=== PATIENT | male | born 1940 | race Caucasian/White ===

== ENCOUNTER 2020-05-10 19:06 | Inpatient (IN) ==
[2020-05-10] MEDS ORDERED: Naloxone 0.4 MG/ML INJ IVP PRN (20:46)
[2020-05-10] MEDS ORDERED: *HR* Dextrose 50 % in Water (Vial) 50 ML VIAL IVP PRN (22:54)
[2020-05-10] MEDS ORDERED: D5% in Water 1,000 ML IVC PRN (22:54)
[2020-05-10] MEDS ORDERED: Dextrose Gel 15 GM/37.5 ML TUBE PO PRN ×2 (22:54)
[2020-05-11] MEDS: Insulin LISPRO 300 UNITS/3 ML VIAL SQ SCH ×4 (00:55→18:01)
[2020-05-11 04:52] LABS: Hematocrit 26.4 % (37.5-50.1); Hemoglobin 7.6 g/dL (12.9-16.9); Mean Corpuscular HGB Conc 28.8 g/dL (31.6-35.5); Mean Platelet Volume 11.4 fL (9.4-12.4); Platelet Count 302 K/mcL (140-400); Red Blood Count 2.81 M/mcL (4.19-5.50); Red Cell Distribution Width 16.1 % (11.5-14.5); White Blood Count 19.6 K/mcL (4.3-11.1)
[2020-05-11] MEDS: D5% in Water 1,000 ML IVC SCH ×4 (05:01→23:40)
[2020-05-11 05:16] LABS: Albumin 3.5 g/dL (3.5-5.7); Bilirubin,Total 0.7 mg/dL (0.3-1.0); Calcium 8.6 mg/dL (8.6-10.3); Globulin 3.5 g/dL (2.4-3.5); Magnesium 2.6 mg/dL (1.6-2.6); Phosphorous 3.4 mg/dL (2.7-4.5); Potassium 3.6 mEq/L (3.5-5.1)
[2020-05-11] MEDS: Piperacillin/Tazobactam 3.375 GM in 0.9 % Sodium Chloride Mini Bag 100 ML IVPB SCH ×3 (09:03→23:41)
[2020-05-11] MEDS: Ringers Solution, Lactated 1,000 ML IVC SCH ×2 (09:07→18:01)
[2020-05-11] MEDS: Milk and Molasses Enema 200 ML RC SCH ×2 (09:46→23:39)
[2020-05-11 10:17] LABS: Hematocrit 25.8 % (37.5-50.1); Hemoglobin 7.5 g/dL (12.9-16.9)
[2020-05-11 11:04] LABS: Calcium 8.9 mg/dL (8.6-10.3); Potassium 3.4 mEq/L (3.5-5.1)
[2020-05-11] MEDS: Pantoprazole 40 MG in 0.9 % Sodium Chloride Mini Bag 100 ML IVC SCH ×3 (11:29→23:39)
[2020-05-11 14:37] LABS: Calcium 8.6 mg/dL (8.6-10.3); Potassium 3.6 mEq/L (3.5-5.1)
[2020-05-11] MEDS ORDERED: Pantoprazole 40 MG VIAL IVP SCH (18:00)
[2020-05-11] MEDS ORDERED: Acetaminophen IV 1,000 MG/100 ML INFUS..BTL IVPB ONE (18:57)
[2020-05-11] MEDS ORDERED: Ringers Solution, Lactated 500 ML IVC ONE (18:57)
[2020-05-11 20:21] LABS: Calcium 8.2 mg/dL (8.6-10.3); Potassium 3.3 mEq/L (3.5-5.1)
[2020-05-11 20:21] LABS: ABG Base Excess 1 mEq/L (-2 to 3); ABG HCO3 24 mEq/L (21-27); ABG Oxygen Saturation 97 % (95-98); ABG PCO2 30 mmHg (35-45); ABG PH 7.51 pH Units (7.32-7.45); ABG PO2 80 mmHg (85-104); ABG TCO2 25 mEq/L (20-26)
[2020-05-11] MEDS: Bisacodyl 10 MG RECTAL SUPPOSITORY RC SCH (20:27)
[2020-05-11] MEDS ORDERED: Albumin 25% 25gram/100mL 25 GM/100 ML IV.SOLN IVPB ONE (20:55)
[2020-05-11] MEDS ORDERED: Potassium Chloride 20 MEQ, Lidocaine 1% 2 ML in 0.9 % Sodium Chloride 250 ML IVPB ONE (23:30)
[2020-05-11] MEDS: Calcium Gluconate 1gm/50mL 1 GM/50 ML BAG IVPB SCH (23:56)
[2020-05-12] MEDS: Insulin LISPRO 300 UNITS/3 ML VIAL SQ SCH ×4 (00:56→17:28)
[2020-05-12] MEDS: Calcium Gluconate 1gm/50mL 1 GM/50 ML BAG IVPB SCH (00:56)
[2020-05-12 01:19] LABS: Basophils % 0.1 %; Hematocrit 20.3 % (37.5-50.1); Immature Granulocytes % 0.9 % (0-4); Lymphocytes # 1.2 K/mcL (0.6-4.6); Lymphocytes % 9.1 %; Mean Corpuscular HGB Conc 29.6 g/dL (31.6-35.5); Mean Corpuscular Hemoglobin 28.2 pg (28.0-33.3); Mean Corpuscular Volume 95.3 fL (83.0-100.0); Mean Platelet Volume 11.3 fL (9.4-12.4); Monocytes # 0.5 K/mcL (0.0-1.3); Monocytes % 3.8 %; Neutrophils # 11.2 K/mcL (1.6-8.9); Nucleated Red Blood Cells 0.3 /100 WBC (0); Platelet Count 208 K/mcL (140-400); Red Blood Count 2.13 M/mcL (4.19-5.50); Red Cell Distribution Width 16.5 % (11.5-14.5); Segmented Neutrophils % 86.1 %
[2020-05-12 01:28] LABS: Magnesium 2.5 mg/dL (1.6-2.6); Phosphorous 2.6 mg/dL (2.7-4.5)
[2020-05-12 01:29] LABS: Calcium 8.5 mg/dL (8.6-10.3); Potassium 3.5 mEq/L (3.5-5.1)
[2020-05-12 01:55] LABS: Folate > 22.3 ng/mL (3.0-16.0); Vitamin B12 764 pg/mL (250-1100)
[2020-05-12] MEDS ORDERED: Acetaminophen IV 1,000 MG/100 ML INFUS..BTL IVPB ONE (02:22)
[2020-05-12] MEDS ORDERED: 0.9 % Sodium Chloride 250 ML ONE (02:59)
[2020-05-12] MEDS ORDERED: Ringers Solution, Lactated 500 ML IVC SCH (03:15)
[2020-05-12] MEDS: Pantoprazole 40 MG in 0.9 % Sodium Chloride Mini Bag 100 ML IVC SCH ×5 (03:20→21:43)
[2020-05-12] MEDS: D5% in Water 1,000 ML IVC SCH ×4 (04:05→21:33)
[2020-05-12] MEDS: Levalbuterol Neb 1.25 MG/3 ML IH SCH ×4 (05:46→21:46)
[2020-05-12] MEDS: Acetylcysteine 10% 2 ML INHSOL IH SCH ×4 (05:46→21:46)
[2020-05-12] MEDS ORDERED: D5% in Water 1,000 ML IVC SCH (09:00)
[2020-05-12] MEDS: Piperacillin/Tazobactam 3.375 GM in 0.9 % Sodium Chloride Mini Bag 100 ML IVPB SCH ×3 (09:17→23:56)
[2020-05-12] MEDS: Bisacodyl 10 MG RECTAL SUPPOSITORY RC SCH ×2 (09:18→21:33)
[2020-05-12 09:44] LABS: Hematocrit 27.9 % (37.5-50.1); Hemoglobin 8.2 g/dL (12.9-16.9)
[2020-05-12 10:10] LABS: Calcium 8.7 mg/dL (8.6-10.3); Potassium 3.7 mEq/L (3.5-5.1)
[2020-05-12] MEDS: Milk and Molasses Enema 200 ML RC SCH (10:13)
[2020-05-12] MEDS ORDERED: Metoclopramide 10 MG/2 ML VIAL IVP ONE (11:23)
[2020-05-12 15:40] LABS: Calcium 8.7 mg/dL (8.6-10.3); Potassium 3.6 mEq/L (3.5-5.1)
[2020-05-13] MEDS: Insulin LISPRO 300 UNITS/3 ML VIAL SQ SCH ×4 (00:24→20:30)
[2020-05-13] MEDS: Milk and Molasses Enema 200 ML RC SCH ×2 (01:00→12:38)
[2020-05-13 01:24] LABS: BUN/Creatinine Ratio 34 (6-26); Blood Urea Nitrogen 45 mg/dL (8-23); Calcium 7.9 mg/dL (8.6-10.3); Carbon Dioxide 20 mEq/L (23-29); Chloride 128 mEq/L (98-107); Glucose 169 mg/dL (70-105); Osmolality,Calculated 337 (280-300); Potassium 3.9 mEq/L (3.5-5.1); Sodium 156 mEq/L (136-145); eGFR For African Americans > 60 (> 60); eGFR For Non-African Americans 52 (> 60)
[2020-05-13] MEDS: Pantoprazole 40 MG in 0.9 % Sodium Chloride Mini Bag 100 ML IVC SCH ×5 (02:32→20:41)
[2020-05-13] MEDS: D5% in Water 1,000 ML IVC SCH ×6 (02:40→20:42)
[2020-05-13] MEDS: Levalbuterol Neb 1.25 MG/3 ML IH SCH ×4 (04:02→22:22)
[2020-05-13] MEDS: Acetylcysteine 10% 2 ML INHSOL IH SCH ×3 (04:02→16:02)
[2020-05-13 05:15] LABS: Basophils % 0.2 %; Eosinophils % 0.3 %; Hematocrit 26.7 % (37.5-50.1); Hemoglobin 8.2 g/dL (12.9-16.9); Immature Granulocytes % 0.8 % (0-4); Lymphocytes # 1.4 K/mcL (0.6-4.6); Lymphocytes % 9.3 %; Mean Corpuscular HGB Conc 30.7 g/dL (31.6-35.5); Mean Corpuscular Hemoglobin 28.7 pg (28.0-33.3); Mean Corpuscular Volume 93.4 fL (83.0-100.0); Mean Platelet Volume 11.6 fL (9.4-12.4); Monocytes # 0.6 K/mcL (0.0-1.3); Monocytes % 4.2 %; Neutrophils # 12.8 K/mcL (1.6-8.9); Nucleated Red Blood Cells 0.1 /100 WBC (0); Platelet Count 226 K/mcL (140-400); Red Blood Count 2.86 M/mcL (4.19-5.50); Red Cell Distribution Width 17.2 % (11.5-14.5); Segmented Neutrophils % 85.2 %
[2020-05-13 05:18] LABS: Eosinophils # 0.1 K/mcL (0.0-0.6)
[2020-05-13 05:32] LABS: BUN/Creatinine Ratio 32 (6-26); Blood Urea Nitrogen 40 mg/dL (8-23); Carbon Dioxide 20 mEq/L (23-29); Chloride 124 mEq/L (98-107); Glucose 137 mg/dL (70-105); Magnesium 2.4 mg/dL (1.6-2.6); Osmolality,Calculated 328 (280-300); Phosphorous 3.5 mg/dL (2.7-4.5); Potassium 3.7 mEq/L (3.5-5.1); Sodium 153 mEq/L (136-145); eGFR For African Americans > 60 (> 60); eGFR For Non-African Americans 56 (> 60)
[2020-05-13 06:08] LABS: Platelet Estimate Normal (Normal)
[2020-05-13] MEDS: Bisacodyl 10 MG RECTAL SUPPOSITORY RC SCH ×2 (08:11→20:41)
[2020-05-13] MEDS: Piperacillin/Tazobactam 3.375 GM in 0.9 % Sodium Chloride Mini Bag 100 ML IVPB SCH ×2 (08:11→16:52)
[2020-05-13 09:19] LABS: Hemoglobin 7.1 g/dL (12.9-16.9); Lymphocytes # 1.1 K/mcL (0.6-4.6); Mean Corpuscular HGB Conc 29.6 g/dL (31.6-35.5); Mean Corpuscular Hemoglobin 27.5 pg (28.0-33.3); Mean Platelet Volume 11.6 fL (9.4-12.4); Platelet Count 198 K/mcL (140-400); Red Blood Count 2.58 M/mcL (4.19-5.50); Red Cell Distribution Width 16.7 % (11.5-14.5); White Blood Count 13.2 K/mcL (4.3-11.1)
[2020-05-13 09:40] LABS: Monocytes # 0.5 K/mcL (0.0-1.3); Neutrophils # 11.6 K/mcL (1.6-8.9); Platelet Estimate Normal (Normal)
[2020-05-13 09:41] LABS: Anisocytosis 1+ (Not Present)
[2020-05-13] MEDS ORDERED: 0.9 % Sodium Chloride 250 ML ONE (11:27)
[2020-05-13] MEDS ORDERED: *HR* Propofol 200 MG/20 ML VIAL IVP ONE (14:29)
[2020-05-13] MEDS ORDERED: D5% in Water 500 ML IVC SCH (17:15)
[2020-05-13 18:18] LABS: Hematocrit 25.1 % (37.5-50.1); Hemoglobin 7.7 g/dL (12.9-16.9)
[2020-05-14] MEDS: Insulin LISPRO 300 UNITS/3 ML VIAL SQ SCH ×5 (00:56→20:05)
[2020-05-14] MEDS: Piperacillin/Tazobactam 3.375 GM in 0.9 % Sodium Chloride Mini Bag 100 ML IVPB SCH ×4 (00:57→23:37)
[2020-05-14] MEDS: Pantoprazole 40 MG in 0.9 % Sodium Chloride Mini Bag 100 ML IVC SCH ×2 (02:11→07:45)
[2020-05-14 02:48] LABS: Basophils % 0.1 %; Eosinophils # 0.3 K/mcL (0.0-0.6); Eosinophils % 1.7 %; Hematocrit 25.1 % (37.5-50.1); Hemoglobin 7.8 g/dL (12.9-16.9); Immature Granulocytes % 0.6 % (0-4); Lymphocytes # 1.8 K/mcL (0.6-4.6); Lymphocytes % 12.4 %; Mean Corpuscular HGB Conc 31.1 g/dL (31.6-35.5); Mean Corpuscular Hemoglobin 27.8 pg (28.0-33.3); Mean Corpuscular Volume 89.3 fL (83.0-100.0); Mean Platelet Volume 11.6 fL (9.4-12.4); Monocytes # 0.5 K/mcL (0.0-1.3); Monocytes % 3.4 %; Neutrophils # 11.9 K/mcL (1.6-8.9); Platelet Count 210 K/mcL (140-400); Red Blood Count 2.81 M/mcL (4.19-5.50); Red Cell Distribution Width 15.5 % (11.5-14.5); Segmented Neutrophils % 81.8 %; White Blood Count 14.5 K/mcL (4.3-11.1)
[2020-05-14 03:09] LABS: BUN/Creatinine Ratio 25 (6-26); Blood Urea Nitrogen 24 mg/dL (8-23); Calcium 7.4 mg/dL (8.6-10.3); Carbon Dioxide 18 mEq/L (23-29); Chloride 115 mEq/L (98-107); Glucose 112 mg/dL (70-105); Magnesium 1.9 mg/dL (1.6-2.6); Osmolality,Calculated 299 (280-300); Phosphorous 2.4 mg/dL (2.7-4.5); Potassium 3.4 mEq/L (3.5-5.1); Sodium 142 mEq/L (136-145); eGFR For African Americans > 60 (> 60); eGFR For Non-African Americans > 60 (> 60)
[2020-05-14] MEDS: Acetaminophen 650 MG RECTAL SUPP RC PRN (03:51)
[2020-05-14] MEDS: Levalbuterol Neb 1.25 MG/3 ML IH SCH ×4 (03:52→22:09)
[2020-05-14] MEDS: D5% in Water 1,000 ML IVC SCH (04:23)
[2020-05-14] MEDS: Bisacodyl 10 MG RECTAL SUPPOSITORY RC SCH ×2 (08:18→20:03)
[2020-05-14] MEDS ORDERED: Potassium Phosphate 44 MEQ in 0.9 % Sodium Chloride 250 ML IVPB ONE (08:23)
[2020-05-14] MEDS: Calcium Gluconate 1gm/50mL 1 GM/50 ML BAG IVPB SCH ×2 (09:12→10:02)
[2020-05-14] MEDS ORDERED: Furosemide 20 MG/2 ML VIAL IVP ONE (12:19)
[2020-05-14] MEDS ORDERED: Levalbuterol Neb 1.25 MG/3 ML IH PRN (22:51)
[2020-05-15 02:42] LABS: BUN/Creatinine Ratio 19 (6-26); Blood Urea Nitrogen 18 mg/dL (8-23); Calcium 7.5 mg/dL (8.6-10.3); Carbon Dioxide 17 mEq/L (23-29); Chloride 118 mEq/L (98-107); Glucose 76 mg/dL (70-105); Magnesium 1.8 mg/dL (1.6-2.6); Osmolality,Calculated 299 (280-300); Phosphorous 3.2 mg/dL (2.7-4.5); Potassium 3.5 mEq/L (3.5-5.1); Sodium 144 mEq/L (136-145); eGFR For African Americans > 60 (> 60); eGFR For Non-African Americans > 60 (> 60)
[2020-05-15] MEDS: Insulin LISPRO 300 UNITS/3 ML VIAL SQ SCH ×4 (07:54→22:19)
[2020-05-15] MEDS: Piperacillin/Tazobactam 3.375 GM in 0.9 % Sodium Chloride Mini Bag 100 ML IVPB SCH ×2 (09:15→16:13)
[2020-05-15] MEDS: Bisacodyl 10 MG RECTAL SUPPOSITORY RC SCH ×2 (09:16→22:19)
[2020-05-15 13:57] LABS: Basophils % 0.3 %; Eosinophils # 0.3 K/mcL (0.0-0.6); Eosinophils % 2.8 %; Hematocrit 30.3 % (37.5-50.1); Hemoglobin 9.5 g/dL (12.9-16.9); Immature Granulocytes % 0.4 % (0-4); Lymphocytes # 0.8 K/mcL (0.6-4.6); Lymphocytes % 8.5 %; Mean Corpuscular HGB Conc 31.4 g/dL (31.6-35.5); Mean Corpuscular Hemoglobin 27.9 pg (28.0-33.3); Mean Corpuscular Volume 89.1 fL (83.0-100.0); Mean Platelet Volume 10.8 fL (9.4-12.4); Monocytes # 0.4 K/mcL (0.0-1.3); Monocytes % 3.9 %; Neutrophils # 7.7 K/mcL (1.6-8.9); Platelet Count 232 K/mcL (140-400); Red Cell Distribution Width 15.4 % (11.5-14.5); Segmented Neutrophils % 84.1 %; White Blood Count 9.2 K/mcL (4.3-11.1)
[2020-05-16] MEDS: Piperacillin/Tazobactam 3.375 GM in 0.9 % Sodium Chloride Mini Bag 100 ML IVPB SCH ×3 (00:52→16:25)
[2020-05-16 07:38] LABS: Basophils % 0.2 %; Eosinophils # 0.2 K/mcL (0.0-0.6); Eosinophils % 2.5 %; Hematocrit 29.1 % (37.5-50.1); Hemoglobin 9.1 g/dL (12.9-16.9); Immature Granulocytes % 0.9 % (0-4); Lymphocytes # 0.9 K/mcL (0.6-4.6); Lymphocytes % 10.7 %; Mean Corpuscular HGB Conc 31.3 g/dL (31.6-35.5); Mean Corpuscular Hemoglobin 27.2 pg (28.0-33.3); Mean Corpuscular Volume 86.9 fL (83.0-100.0); Mean Platelet Volume 11.3 fL (9.4-12.4); Monocytes # 0.4 K/mcL (0.0-1.3); Monocytes % 5.1 %; Neutrophils # 6.5 K/mcL (1.6-8.9); Platelet Count 267 K/mcL (140-400); Red Blood Count 3.35 M/mcL (4.19-5.50); Red Cell Distribution Width 15.1 % (11.5-14.5); Segmented Neutrophils % 80.6 %
[2020-05-16] MEDS: Insulin LISPRO 300 UNITS/3 ML VIAL SQ SCH ×4 (07:44→21:39)
[2020-05-16 08:00] LABS: BUN/Creatinine Ratio 12 (6-26); Blood Urea Nitrogen 9 mg/dL (8-23); Calcium 7.7 mg/dL (8.6-10.3); Carbon Dioxide 18 mEq/L (23-29); Chloride 112 mEq/L (98-107); Glucose 89 mg/dL (70-105); Magnesium 1.6 mg/dL (1.6-2.6); Osmolality,Calculated 290 (280-300); Potassium 3.1 mEq/L (3.5-5.1); Sodium 141 mEq/L (136-145); eGFR For African Americans > 60 (> 60); eGFR For Non-African Americans > 60 (> 60)
[2020-05-16] MEDS: Bisacodyl 10 MG RECTAL SUPPOSITORY RC SCH ×2 (10:04→21:39)
[2020-05-16] MEDS ORDERED: Potassium Phosphate 44 MEQ in 0.9 % Sodium Chloride 250 ML IVPB ONE (14:01)
[2020-05-17] MEDS: Piperacillin/Tazobactam 3.375 GM in 0.9 % Sodium Chloride Mini Bag 100 ML IVPB SCH ×3 (01:09→17:51)
[2020-05-17] MEDS ORDERED: Potassium Phosphate 44 MEQ in 0.9 % Sodium Chloride 250 ML IVPB ONE (07:20)
[2020-05-17] MEDS: Bisacodyl 10 MG RECTAL SUPPOSITORY RC SCH ×2 (07:44→22:32)
[2020-05-17] MEDS: Potassium Chloride Elixir 20 MEQ/15 ML UDC PO SCH ×2 (07:44→13:50)
[2020-05-17 08:19] LABS: Basophils % 0.3 %; Eosinophils # 0.1 K/mcL (0.0-0.6); Eosinophils % 1.2 %; Hematocrit 27.4 % (37.5-50.1); Hemoglobin 8.6 g/dL (12.9-16.9); Immature Granulocytes % 0.9 % (0-4); Lymphocytes # 0.9 K/mcL (0.6-4.6); Lymphocytes % 10.6 %; Mean Corpuscular HGB Conc 31.4 g/dL (31.6-35.5); Mean Corpuscular Hemoglobin 27.3 pg (28.0-33.3); Mean Platelet Volume 10.3 fL (9.4-12.4); Monocytes # 0.6 K/mcL (0.0-1.3); Monocytes % 6.4 %; Neutrophils # 7.1 K/mcL (1.6-8.9); Nucleated Red Blood Cells 0.2 /100 WBC (0); Platelet Count 316 K/mcL (140-400); Red Blood Count 3.15 M/mcL (4.19-5.50); Red Cell Distribution Width 15.4 % (11.5-14.5); Segmented Neutrophils % 80.6 %; White Blood Count 8.9 K/mcL (4.3-11.1)
[2020-05-17 08:34] LABS: BUN/Creatinine Ratio 13 (6-26); Blood Urea Nitrogen 9 mg/dL (8-23); Calcium 7.7 mg/dL (8.6-10.3); Carbon Dioxide 16 mEq/L (23-29); Chloride 112 mEq/L (98-107); Glucose 76 mg/dL (70-105); Magnesium 1.9 mg/dL (1.6-2.6); Osmolality,Calculated 289 (280-300); Phosphorous 2.7 mg/dL (2.7-4.5); Potassium 3.7 mEq/L (3.5-5.1); Sodium 141 mEq/L (136-145); eGFR For African Americans > 60 (> 60); eGFR For Non-African Americans > 60 (> 60)
[2020-05-17] MEDS: Insulin LISPRO 300 UNITS/3 ML VIAL SQ SCH ×4 (08:39→22:33)
[2020-05-17] MEDS: Acetaminophen 650 MG RECTAL SUPP RC PRN (12:05)
[2020-05-17] MEDS: Baclofen 10 MG TABLET PO SCH ×2 (13:50→22:32)
[2020-05-17] MEDS: Magnesium Oxide 400 MG TABLET PO SCH (13:53)
[2020-05-17] MEDS: Haloperidol Lactate 5 MG/ML VIAL IVP PRN ×2 (14:13→22:33)
[2020-05-17] MEDS ORDERED: Isovue-370 500 ML BOTTLE IVP ONE (14:57)
[2020-05-17] MEDS ORDERED: Mirtazapine 15 MG TABLET PO SCH (21:00)
[2020-05-18] MEDS: Piperacillin/Tazobactam 3.375 GM in 0.9 % Sodium Chloride Mini Bag 100 ML IVPB SCH ×2 (00:16→09:14)
[2020-05-18 05:39] LABS: Basophils % 0.2 %; Eosinophils # 0.2 K/mcL (0.0-0.6); Eosinophils % 1.8 %; Hematocrit 27.4 % (37.5-50.1); Hemoglobin 8.5 g/dL (12.9-16.9); Lymphocytes # 1.1 K/mcL (0.6-4.6); Lymphocytes % 12.5 %; Mean Corpuscular Hemoglobin 28.1 pg (28.0-33.3); Mean Corpuscular Volume 90.4 fL (83.0-100.0); Mean Platelet Volume 10.6 fL (9.4-12.4); Monocytes # 0.7 K/mcL (0.0-1.3); Monocytes % 7.8 %; Neutrophils # 6.8 K/mcL (1.6-8.9); Platelet Count 355 K/mcL (140-400); Red Blood Count 3.03 M/mcL (4.19-5.50); Red Cell Distribution Width 15.9 % (11.5-14.5); Segmented Neutrophils % 76.7 %; White Blood Count 8.8 K/mcL (4.3-11.1)
[2020-05-18 06:00] LABS: BUN/Creatinine Ratio 13 (6-26); Blood Urea Nitrogen 9 mg/dL (8-23); Calcium 7.9 mg/dL (8.6-10.3); Carbon Dioxide 14 mEq/L (23-29); Chloride 108 mEq/L (98-107); Glucose 62 mg/dL (70-105); Magnesium 1.8 mg/dL (1.6-2.6); Osmolality,Calculated 281 (280-300); Phosphorous 2.6 mg/dL (2.7-4.5); Potassium 4.3 mEq/L (3.5-5.1); Sodium 137 mEq/L (136-145); eGFR For African Americans > 60 (> 60); eGFR For Non-African Americans > 60 (> 60)
[2020-05-18] MEDS: Insulin LISPRO 300 UNITS/3 ML VIAL SQ SCH ×2 (09:09→12:11)
[2020-05-18] MEDS: Baclofen 10 MG TABLET PO SCH ×2 (09:13→15:04)
[2020-05-18] MEDS: Bisacodyl 10 MG RECTAL SUPPOSITORY RC SCH (09:14)
[2020-05-18] MEDS: Magnesium Oxide 400 MG TABLET PO SCH (09:14)
[2020-05-18] MEDS: Haloperidol Lactate 5 MG/ML VIAL IVP PRN (09:30)
[2020-05-18 12:03] VITALS: BP 118/83
== END 2020-05-18 15:43 | disposition home or self-care (01) | DRG 871 ==
LOC: 2ANU → 2NNU 05-12 02:09 → 2ANU 05-16 01:53
PROVIDERS: ADMIT Family Medicine; ATTEND Family Medicine

== ENCOUNTER 2020-07-20 16:08 | Inpatient (IN) ==
[2020-07-20] MEDS ORDERED: Naloxone 0.4 MG/ML INJ IVP PRN (19:34)
[2020-07-20] MEDS ORDERED: *HR* Dextrose 50 % in Water (Vial) 50 ML VIAL IVP PRN (19:36)
[2020-07-20] MEDS ORDERED: Dextrose Gel 15 GM/37.5 ML TUBE PO PRN ×2 (19:36)
[2020-07-20] MEDS ORDERED: D5% in Water 1,000 ML IVC PRN (19:36)
[2020-07-20] MEDS: 0.9 % Sodium Chloride 1,000 ML IVC SCH (20:06)
[2020-07-20] MEDS ORDERED: *HR* LORazepam 2 MG/ML VIAL IVP ONE (20:06)
[2020-07-20] MEDS: MetroNIDAZOLE 500 MG/100 ML 500 MG/100 ML BAG IVPB SCH (20:07)
[2020-07-21] MEDS: Insulin LISPRO 300 UNITS/3 ML VIAL SUBQ SCH ×5 (00:34→23:03)
[2020-07-21] MEDS ORDERED: *HR* Metoprolol 5 MG/5 ML VIAL IVP ONE (00:38)
[2020-07-21] MEDS: MetroNIDAZOLE 500 MG/100 ML 500 MG/100 ML BAG IVPB SCH ×4 (00:46→23:03)
[2020-07-21 00:56] LABS: Hematocrit 36.1 % (37.5-50.1); Hemoglobin 11.3 g/dL (12.9-16.9); Mean Corpuscular HGB Conc 31.3 g/dL (31.6-35.5); Mean Corpuscular Hemoglobin 26.8 pg (28.0-33.3); Mean Corpuscular Volume 85.7 fL (83.0-100.0); Mean Platelet Volume 10.7 fL (9.4-12.4); Platelet Count 301 K/mcL (140-400); Red Blood Count 4.21 M/mcL (4.19-5.50); Red Cell Distribution Width 15.8 % (11.5-14.5); White Blood Count 16.3 K/mcL (4.3-11.1)
[2020-07-21 01:01] LABS: Calcium 8.8 mg/dL (8.6-10.3); Chol/HDL Ratio 1.9 (0-4.9); Magnesium 1.8 mg/dL (1.6-2.6); Phosphorous 3.9 mg/dL (2.7-4.5); Potassium 5.1 mEq/L (3.5-5.1)
[2020-07-21] MEDS ORDERED: 0.9 % Sodium Chloride 500 ML IVC ONE (01:08)
[2020-07-21] MEDS: 0.9 % Sodium Chloride 1,000 ML IVC SCH ×2 (02:31→14:47)
[2020-07-21] MEDS: *HR* Heparin 5,000 UNIT/ML VIAL SQ SCH ×2 (05:53→17:46)
[2020-07-21 10:45] LABS: Estimated Average Glucose 91 mg/dl; Hemoglobin A1C 4.8 %
[2020-07-21 11:05] LABS: Calcium 8.7 mg/dL (8.6-10.3)
[2020-07-21] MEDS: Baclofen 10 MG TABLET PO SCH ×2 (14:46→20:00)
[2020-07-21] MEDS: Sennosides 8.6 MG TABLET PO SCH (20:00)
[2020-07-21] MEDS: Mirtazapine 15 MG TABLET PO SCH (20:00)
[2020-07-21] MEDS: ALPRAZolam 0.25 MG TABLET PO SCH (20:00)
[2020-07-21] MEDS: Psyllium 1 PACKET POWD.PACK PO SCH (20:01)
[2020-07-21] MEDS: Carbamide Peroxide 150 DROP/15 ML BOTTLE RIGHT EAR SCH (20:01)
[2020-07-21] MEDS: polyethylene glycoL 3350 17 GM POWD.PACK PO SCH (20:01)
[2020-07-21] MEDS: Nystatin POWDER 30 GM BOTTLE TP SCH (21:09)
[2020-07-22 01:34] LABS: Basophils % 0.1 %; Hemoglobin 11.2 g/dL (12.9-16.9); Immature Granulocytes % 0.3 % (0-4); Lymphocytes # 0.8 K/mcL (0.6-4.6); Lymphocytes % 6.9 %; Mean Corpuscular HGB Conc 31.1 g/dL (31.6-35.5); Mean Corpuscular Hemoglobin 26.4 pg (28.0-33.3); Mean Corpuscular Volume 84.7 fL (83.0-100.0); Mean Platelet Volume 10.2 fL (9.4-12.4); Monocytes # 0.6 K/mcL (0.0-1.3); Monocytes % 5.3 %; Neutrophils # 9.6 K/mcL (1.6-8.9); Platelet Count 280 K/mcL (140-400); Red Blood Count 4.25 M/mcL (4.19-5.50); Red Cell Distribution Width 15.7 % (11.5-14.5); Segmented Neutrophils % 87.4 %; White Blood Count 10.9 K/mcL (4.3-11.1)
[2020-07-22 01:54] LABS: BUN/Creatinine Ratio 24 (6-26); Blood Urea Nitrogen 26 mg/dL (8-23); Carbon Dioxide 21 mEq/L (23-29); Chloride 103 mEq/L (98-107); Glucose 97 mg/dL (70-105); Osmolality,Calculated 299 (280-300); Potassium 3.6 mEq/L (3.5-5.1); Sodium 142 mEq/L (136-145); eGFR For African Americans > 60 (> 60); eGFR For Non-African Americans > 60 (> 60)
[2020-07-22] MEDS: 0.9 % Sodium Chloride 1,000 ML IVC SCH ×3 (04:24→20:51)
[2020-07-22] MEDS: *HR* Heparin 5,000 UNIT/ML VIAL SQ SCH ×2 (05:13→16:37)
[2020-07-22] MEDS: Insulin LISPRO 300 UNITS/3 ML VIAL SUBQ SCH ×4 (05:17→20:50)
[2020-07-22] MEDS: Baclofen 10 MG TABLET PO SCH ×3 (07:57→20:50)
[2020-07-22] MEDS: Finasteride 5 MG TABLET PO SCH (07:57)
[2020-07-22] MEDS: Psyllium 1 PACKET POWD.PACK PO SCH ×2 (07:57→20:50)
[2020-07-22] MEDS: Loratadine 10 MG TABLET PO SCH (07:57)
[2020-07-22] MEDS: Famotidine 20 MG TABLET PO SCH (07:57)
[2020-07-22] MEDS: polyethylene glycoL 3350 17 GM POWD.PACK PO SCH ×2 (07:57→20:50)
[2020-07-22] MEDS: ALPRAZolam 0.25 MG TABLET PO SCH ×2 (07:57→20:50)
[2020-07-22] MEDS: Magnesium Oxide 400 MG TABLET PO SCH (07:57)
[2020-07-22] MEDS: Sennosides 8.6 MG TABLET PO SCH ×2 (07:57→20:50)
[2020-07-22] MEDS: MetroNIDAZOLE 500 MG/100 ML 500 MG/100 ML BAG IVPB SCH (07:58)
[2020-07-22] MEDS: Multivit/Ca/Min/Fe/FA 1 TAB TABLET PO SCH (07:58)
[2020-07-22] MEDS: Ketoconazole 2% CRM 15 GM TUBE TP SCH (07:59)
[2020-07-22] MEDS: Carbamide Peroxide 150 DROP/15 ML BOTTLE RIGHT EAR SCH ×2 (08:00→20:50)
[2020-07-22] MEDS: Nystatin POWDER 30 GM BOTTLE TP SCH ×2 (08:00→20:50)
[2020-07-22] MEDS ORDERED: Ondansetron 4 MG/2 ML VIAL IVP PRN (08:18)
[2020-07-22] MEDS: Mirtazapine 15 MG TABLET PO SCH (20:50)
[2020-07-23 02:16] LABS: Basophils % 0.1 %; Hematocrit 32.7 % (37.5-50.1); Hemoglobin 9.9 g/dL (12.9-16.9); Immature Granulocytes % 0.5 % (0-4); Lymphocytes # 1.1 K/mcL (0.6-4.6); Lymphocytes % 11.3 %; Mean Corpuscular HGB Conc 30.3 g/dL (31.6-35.5); Mean Corpuscular Hemoglobin 25.8 pg (28.0-33.3); Mean Corpuscular Volume 85.2 fL (83.0-100.0); Mean Platelet Volume 11.2 fL (9.4-12.4); Monocytes # 0.5 K/mcL (0.0-1.3); Monocytes % 5.2 %; Platelet Count 198 K/mcL (140-400); Red Blood Count 3.84 M/mcL (4.19-5.50); Red Cell Distribution Width 15.6 % (11.5-14.5); Segmented Neutrophils % 82.9 %; White Blood Count 9.7 K/mcL (4.3-11.1)
[2020-07-23 02:29] LABS: BUN/Creatinine Ratio 26 (6-26); Blood Urea Nitrogen 20 mg/dL (8-23); Calcium 8.2 mg/dL (8.6-10.3); Carbon Dioxide 26 mEq/L (23-29); Chloride 113 mEq/L (98-107); Glucose 109 mg/dL (70-105); Osmolality,Calculated 305 (280-300); Sodium 146 mEq/L (136-145); eGFR For African Americans > 60 (> 60); eGFR For Non-African Americans > 60 (> 60)
[2020-07-23] MEDS: *HR* Heparin 5,000 UNIT/ML VIAL SQ SCH ×2 (04:14→16:33)
[2020-07-23] MEDS: Nystatin POWDER 30 GM BOTTLE TP SCH ×2 (10:15→22:03)
[2020-07-23] MEDS: Carbamide Peroxide 150 DROP/15 ML BOTTLE RIGHT EAR SCH ×2 (10:15→22:04)
[2020-07-23] MEDS: Sennosides 8.6 MG TABLET PO SCH ×2 (10:15→22:01)
[2020-07-23] MEDS: Multivit/Ca/Min/Fe/FA 1 TAB TABLET PO SCH (10:16)
[2020-07-23] MEDS: Famotidine 20 MG TABLET PO SCH (10:16)
[2020-07-23] MEDS: Baclofen 10 MG TABLET PO SCH ×3 (10:16→22:00)
[2020-07-23] MEDS: Magnesium Oxide 400 MG TABLET PO SCH (10:16)
[2020-07-23] MEDS: Finasteride 5 MG TABLET PO SCH (10:16)
[2020-07-23] MEDS: ALPRAZolam 0.25 MG TABLET PO SCH ×2 (10:16→22:01)
[2020-07-23] MEDS: Ketoconazole 2% CRM 15 GM TUBE TP SCH (10:17)
[2020-07-23] MEDS: Loratadine 10 MG TABLET PO SCH (10:17)
[2020-07-23] MEDS: Psyllium 1 PACKET POWD.PACK PO SCH ×2 (10:17→22:01)
[2020-07-23] MEDS: polyethylene glycoL 3350 17 GM POWD.PACK PO SCH ×2 (10:17→22:02)
[2020-07-23] MEDS: 0.9 % Sodium Chloride 1,000 ML IVC SCH (10:17)
[2020-07-23] MEDS: Insulin LISPRO 300 UNITS/3 ML VIAL SUBQ SCH ×4 (10:18→22:05)
[2020-07-23] MEDS: Mirtazapine 15 MG TABLET PO SCH (22:00)
[2020-07-24] MEDS: *HR* Heparin 5,000 UNIT/ML VIAL SQ SCH ×2 (05:03→17:40)
[2020-07-24 05:29] LABS: Basophils % 0.1 %; Eosinophils % 0.4 %; Hematocrit 37.1 % (37.5-50.1); Hemoglobin 11.2 g/dL (12.9-16.9); Immature Granulocytes % 0.2 % (0-4); Lymphocytes # 0.9 K/mcL (0.6-4.6); Lymphocytes % 9.2 %; Mean Corpuscular HGB Conc 30.2 g/dL (31.6-35.5); Mean Corpuscular Hemoglobin 26.9 pg (28.0-33.3); Mean Platelet Volume 10.3 fL (9.4-12.4); Monocytes # 0.6 K/mcL (0.0-1.3); Monocytes % 6.4 %; Neutrophils # 8.3 K/mcL (1.6-8.9); Platelet Count 200 K/mcL (140-400); Red Blood Count 4.17 M/mcL (4.19-5.50); Red Cell Distribution Width 15.5 % (11.5-14.5); Segmented Neutrophils % 83.7 %; White Blood Count 9.9 K/mcL (4.3-11.1)
[2020-07-24 05:42] LABS: BUN/Creatinine Ratio 24 (6-26); Blood Urea Nitrogen 16 mg/dL (8-23); Calcium 8.4 mg/dL (8.6-10.3); Carbon Dioxide 26 mEq/L (23-29); Chloride 110 mEq/L (98-107); Glucose 72 mg/dL (70-105); Osmolality,Calculated 298 (280-300); Potassium 3.3 mEq/L (3.5-5.1); Sodium 144 mEq/L (136-145); eGFR For African Americans > 60 (> 60); eGFR For Non-African Americans > 60 (> 60)
[2020-07-24] MEDS: Insulin LISPRO 300 UNITS/3 ML VIAL SUBQ SCH ×4 (08:01→22:19)
[2020-07-24] MEDS: ALPRAZolam 0.25 MG TABLET PO SCH ×2 (10:02→22:17)
[2020-07-24] MEDS: Multivit/Ca/Min/Fe/FA 1 TAB TABLET PO SCH (10:02)
[2020-07-24] MEDS: Magnesium Oxide 400 MG TABLET PO SCH (10:03)
[2020-07-24] MEDS: Finasteride 5 MG TABLET PO SCH (10:03)
[2020-07-24] MEDS: Loratadine 10 MG TABLET PO SCH (10:03)
[2020-07-24] MEDS: Famotidine 20 MG TABLET PO SCH (10:03)
[2020-07-24] MEDS: Carbamide Peroxide 150 DROP/15 ML BOTTLE RIGHT EAR SCH ×2 (10:04→22:19)
[2020-07-24] MEDS: polyethylene glycoL 3350 17 GM POWD.PACK PO SCH ×2 (10:04→22:18)
[2020-07-24] MEDS: Baclofen 10 MG TABLET PO SCH ×3 (10:04→22:18)
[2020-07-24] MEDS: Psyllium 1 PACKET POWD.PACK PO SCH ×2 (10:04→22:18)
[2020-07-24] MEDS: Ketoconazole 2% CRM 15 GM TUBE TP SCH (10:04)
[2020-07-24] MEDS: Nystatin POWDER 30 GM BOTTLE TP SCH ×2 (10:04→23:08)
[2020-07-24] MEDS: Sennosides 8.6 MG TABLET PO SCH ×2 (10:04→22:18)
[2020-07-24] MEDS: Mirtazapine 15 MG TABLET PO SCH (22:18)
[2020-07-25] MEDS: *HR* Heparin 5,000 UNIT/ML VIAL SQ SCH ×2 (05:22→16:56)
[2020-07-25 05:47] LABS: Basophils % 0.2 %; Eosinophils % 0.3 %; Hematocrit 39.1 % (37.5-50.1); Hemoglobin 11.7 g/dL (12.9-16.9); Immature Granulocytes % 0.4 % (0-4); Lymphocytes # 1.1 K/mcL (0.6-4.6); Lymphocytes % 10.8 %; Mean Corpuscular HGB Conc 29.9 g/dL (31.6-35.5); Mean Corpuscular Hemoglobin 25.4 pg (28.0-33.3); Mean Platelet Volume 10.2 fL (9.4-12.4); Monocytes # 0.7 K/mcL (0.0-1.3); Monocytes % 6.6 %; Platelet Count 239 K/mcL (140-400); Red Cell Distribution Width 15.4 % (11.5-14.5); Segmented Neutrophils % 81.7 %; White Blood Count 9.8 K/mcL (4.3-11.1)
[2020-07-25 06:13] LABS: BUN/Creatinine Ratio 21 (6-26); Blood Urea Nitrogen 14 mg/dL (8-23); Calcium 8.9 mg/dL (8.6-10.3); Carbon Dioxide 27 mEq/L (23-29); Chloride 107 mEq/L (98-107); Glucose 97 mg/dL (70-105); Osmolality,Calculated 294 (280-300); Potassium 4.1 mEq/L (3.5-5.1); Sodium 142 mEq/L (136-145); eGFR For African Americans > 60 (> 60); eGFR For Non-African Americans > 60 (> 60)
[2020-07-25] MEDS: polyethylene glycoL 3350 17 GM POWD.PACK PO SCH (07:59)
[2020-07-25] MEDS: Psyllium 1 PACKET POWD.PACK PO SCH (07:59)
[2020-07-25] MEDS: Finasteride 5 MG TABLET PO SCH (08:00)
[2020-07-25] MEDS: Multivit/Ca/Min/Fe/FA 1 TAB TABLET PO SCH (08:00)
[2020-07-25] MEDS: Sennosides 8.6 MG TABLET PO SCH (08:00)
[2020-07-25] MEDS: Famotidine 20 MG TABLET PO SCH (08:00)
[2020-07-25] MEDS: Baclofen 10 MG TABLET PO SCH (08:01)
[2020-07-25] MEDS: Insulin LISPRO 300 UNITS/3 ML VIAL SUBQ SCH ×4 (08:01→21:48)
[2020-07-25] MEDS: Loratadine 10 MG TABLET PO SCH (08:01)
[2020-07-25] MEDS: ALPRAZolam 0.25 MG TABLET PO SCH (08:01)
[2020-07-25] MEDS: Nystatin POWDER 30 GM BOTTLE TP SCH ×2 (08:01→21:48)
[2020-07-25] MEDS: Magnesium Oxide 400 MG TABLET PO SCH (08:01)
[2020-07-25] MEDS: Ketoconazole 2% CRM 15 GM TUBE TP SCH (08:02)
[2020-07-25] MEDS: Carbamide Peroxide 150 DROP/15 ML BOTTLE RIGHT EAR SCH ×2 (08:02→21:47)
[2020-07-25] MEDS: Baclofen 10 MG TABLET GTUBE SCH ×2 (15:23→21:46)
[2020-07-25] MEDS: Piperacillin/Tazobactam 3.375 GM in 0.9 % Sodium Chloride Mini Bag 100 ML IVPB SCH (15:23)
[2020-07-25] MEDS: Mirtazapine 15 MG TABLET PO SCH (21:46)
[2020-07-25] MEDS: ALPRAZolam 0.25 MG TABLET GTUBE SCH (21:47)
[2020-07-26] MEDS: Piperacillin/Tazobactam 3.375 GM in 0.9 % Sodium Chloride Mini Bag 100 ML IVPB SCH ×4 (00:40→23:35)
[2020-07-26] MEDS: *HR* Heparin 5,000 UNIT/ML VIAL SQ SCH ×2 (04:58→15:34)
[2020-07-26 06:49] LABS: Basophils % 0.3 %; Eosinophils # 0.2 K/mcL (0.0-0.6); Eosinophils % 2.3 %; Hematocrit 31.4 % (37.5-50.1); Hemoglobin 9.7 g/dL (12.9-16.9); Immature Granulocytes % 0.3 % (0-4); Lymphocytes # 0.8 K/mcL (0.6-4.6); Lymphocytes % 12.1 %; Mean Corpuscular HGB Conc 30.9 g/dL (31.6-35.5); Mean Corpuscular Hemoglobin 26.6 pg (28.0-33.3); Mean Corpuscular Volume 86.3 fL (83.0-100.0); Mean Platelet Volume 9.9 fL (9.4-12.4); Monocytes # 0.4 K/mcL (0.0-1.3); Monocytes % 6.3 %; Neutrophils # 5.5 K/mcL (1.6-8.9); Platelet Count 229 K/mcL (140-400); Red Blood Count 3.64 M/mcL (4.19-5.50); Red Cell Distribution Width 15.4 % (11.5-14.5); Segmented Neutrophils % 78.7 %; White Blood Count 6.9 K/mcL (4.3-11.1)
[2020-07-26 07:14] LABS: BUN/Creatinine Ratio 20 (6-26); Blood Urea Nitrogen 16 mg/dL (8-23); Calcium 8.3 mg/dL (8.6-10.3); Carbon Dioxide 23 mEq/L (23-29); Chloride 112 mEq/L (98-107); Glucose 82 mg/dL (70-105); Osmolality,Calculated 298 (280-300); Potassium 3.9 mEq/L (3.5-5.1); Sodium 144 mEq/L (136-145); eGFR For African Americans > 60 (> 60); eGFR For Non-African Americans > 60 (> 60)
[2020-07-26] MEDS: Insulin LISPRO 300 UNITS/3 ML VIAL SUBQ SCH ×4 (07:17→18:16)
[2020-07-26] MEDS: ALPRAZolam 0.25 MG TABLET GTUBE SCH ×2 (09:19→19:22)
[2020-07-26] MEDS: Finasteride 5 MG TABLET PO SCH (09:19)
[2020-07-26] MEDS: Loratadine 10 MG TABLET GTUBE SCH (09:19)
[2020-07-26] MEDS: Ketoconazole 2% CRM 15 GM TUBE TP SCH (09:20)
[2020-07-26] MEDS: Baclofen 10 MG TABLET GTUBE SCH ×3 (09:20→19:21)
[2020-07-26] MEDS: Nystatin POWDER 30 GM BOTTLE TP SCH ×2 (09:20→19:21)
[2020-07-26] MEDS: Multivitamin Liquid 15 ML UDC GTUBE SCH (09:20)
[2020-07-26] MEDS: Magnesium Oxide 400 MG TABLET GTUBE SCH (09:20)
[2020-07-26] MEDS: Famotidine 20 MG TABLET GTUBE SCH (09:20)
[2020-07-26] MEDS: Mirtazapine 15 MG TABLET GTUBE SCH (19:21)
[2020-07-27 04:31] LABS: Basophils % 0.3 %; Eosinophils # 0.1 K/mcL (0.0-0.6); Eosinophils % 1.7 %; Hematocrit 36.2 % (37.5-50.1); Hemoglobin 11.1 g/dL (12.9-16.9); Immature Granulocytes % 0.3 % (0-4); Lymphocytes % 14.6 %; Mean Corpuscular HGB Conc 30.7 g/dL (31.6-35.5); Mean Corpuscular Hemoglobin 26.3 pg (28.0-33.3); Mean Corpuscular Volume 85.8 fL (83.0-100.0); Mean Platelet Volume 9.9 fL (9.4-12.4); Monocytes # 0.4 K/mcL (0.0-1.3); Monocytes % 5.6 %; Neutrophils # 5.5 K/mcL (1.6-8.9); Platelet Count 288 K/mcL (140-400); Red Blood Count 4.22 M/mcL (4.19-5.50); Red Cell Distribution Width 15.3 % (11.5-14.5); Segmented Neutrophils % 77.5 %; White Blood Count 7.1 K/mcL (4.3-11.1)
[2020-07-27 04:49] LABS: BUN/Creatinine Ratio 22 (6-26); Blood Urea Nitrogen 17 mg/dL (8-23); Calcium 8.7 mg/dL (8.6-10.3); Carbon Dioxide 23 mEq/L (23-29); Chloride 107 mEq/L (98-107); Glucose 105 mg/dL (70-105); Osmolality,Calculated 306 (280-300); Potassium 3.7 mEq/L (3.5-5.1); Sodium 147 mEq/L (136-145); eGFR For African Americans > 60 (> 60); eGFR For Non-African Americans > 60 (> 60)
[2020-07-27] MEDS: *HR* Heparin 5,000 UNIT/ML VIAL SQ SCH ×2 (05:04→17:54)
[2020-07-27] MEDS: Insulin LISPRO 300 UNITS/3 ML VIAL SUBQ SCH ×4 (10:49→21:09)
[2020-07-27] MEDS: Piperacillin/Tazobactam 3.375 GM in 0.9 % Sodium Chloride Mini Bag 100 ML IVPB SCH ×3 (10:55→23:51)
[2020-07-27] MEDS: Famotidine 20 MG TABLET GTUBE SCH (11:02)
[2020-07-27] MEDS: Multivitamin Liquid 15 ML UDC GTUBE SCH (11:03)
[2020-07-27] MEDS: Loratadine 10 MG TABLET GTUBE SCH (11:04)
[2020-07-27] MEDS: Baclofen 10 MG TABLET GTUBE SCH ×3 (11:05→21:10)
[2020-07-27] MEDS: ALPRAZolam 0.25 MG TABLET GTUBE SCH ×2 (11:06→21:11)
[2020-07-27] MEDS: Magnesium Oxide 400 MG TABLET GTUBE SCH (11:06)
[2020-07-27] MEDS: Ketoconazole 2% CRM 15 GM TUBE TP SCH (11:07)
[2020-07-27] MEDS: Nystatin POWDER 30 GM BOTTLE TP SCH ×2 (11:08→21:10)
[2020-07-27] MEDS ORDERED: Morphine Sulfate Oral CONC 10 MG/0.5 ML ORAL.SYG SL PRN (14:59)
[2020-07-27] MEDS: Mirtazapine 15 MG TABLET GTUBE SCH (21:10)
[2020-07-28] MEDS: *HR* Heparin 5,000 UNIT/ML VIAL SQ SCH (05:40)
[2020-07-28] MEDS: Insulin LISPRO 300 UNITS/3 ML VIAL SUBQ SCH (07:20)
[2020-07-28] MEDS: Famotidine 20 MG TABLET GTUBE SCH (07:20)
[2020-07-28] MEDS: Magnesium Oxide 400 MG TABLET GTUBE SCH (07:21)
[2020-07-28] MEDS: Baclofen 10 MG TABLET GTUBE SCH (07:21)
[2020-07-28] MEDS: Multivitamin Liquid 15 ML UDC GTUBE SCH (07:21)
[2020-07-28] MEDS: Loratadine 10 MG TABLET GTUBE SCH (07:21)
[2020-07-28] MEDS: ALPRAZolam 0.25 MG TABLET GTUBE SCH (07:22)
[2020-07-28] MEDS: Ketoconazole 2% CRM 15 GM TUBE TP SCH (07:41)
[2020-07-28] MEDS: Piperacillin/Tazobactam 3.375 GM in 0.9 % Sodium Chloride Mini Bag 100 ML IVPB SCH (07:41)
[2020-07-28] MEDS: Nystatin POWDER 30 GM BOTTLE TP SCH (07:42)
[2020-07-28 08:09] VITALS: BP 143/74
[2020-07-28] MEDS ORDERED: Haloperidol Oral Conc 10 MG/5 ML UDC PO PRN (09:14)
[2020-07-28] MEDS ORDERED: Scopolamine Patch 1.5 MG PATCH.TD72 TD SCH (09:15)
[2020-07-28] MEDS ORDERED: *HR* LORazepam Oral Conc 2 MG/ML SL PRN (09:17)
== END 2020-07-28 11:59 | DRG 872 ==
LOC: 2ANU → SUATTDRO 07-21 16:11
PROVIDERS: ADMIT Internal Medicine; ATTEND Family Medicine